=== PATIENT | male | born 1985 | race Caucasian/White ===

== ENCOUNTER 2022-10-27 05:56 | Emergency (ER) | payer MEDICAID ==
[~2022-10-27 05:56] MED LIST: ACET1TAB23 PO; BUTE12CR TP; CEPH500C2 PO; SULF1TAB48 PO
--- NOTE | 2022-10-27 06:49 | NUR ---
PT WAS CALLED 3 TIMES WITH NO RESPONSE.
== END 2022-10-27 06:50 | disposition left against medical advice (07) ==
LOC: ER 05:58
DX: Z53.21 Procedure and treatment not carried out due to patient leaving prior to being seen by health care provider (principal)

== ENCOUNTER 2022-10-27 09:21 | Emergency (ER) | payer MEDICAID ==
[~2022-10-27] VITALS: Ht 167.6 cm; Wt 63.5 kg
[2022-10-27 09:45] VITALS: O2SAT 96
--- NOTE | 2022-10-27 10:22 | NUR ---
Pt seen by MD for bedside eval. Safety measures in place. Will continue to monitor.
[2022-10-27] MEDS ORDERED: ONDANSETRON 4 MG/2 ML VIAL IV ONE (10:30)
[2022-10-27] MEDS ORDERED: VANCOMYCIN IV 1,000 MG in IV DEXTROSE 5% 250 ML IV ONE (10:30)
[2022-10-27] MEDS ORDERED: MORPHINE SULFATE 4 MG/1 ML DISP.SYRIN IV ONE (10:30)
[2022-10-27] MEDS ORDERED: CEFTRIAXONE 1 G in IV DEXTROSE 5% 50 ML IV ONE (10:30)
[2022-10-27] MEDS ORDERED: IV NORMAL SALINE 1000 ML BAG IV ONE (10:30)
--- NOTE | 2022-10-27 10:39 | NUR ---
Pt needed to put money in sidewalk parking so he wouldn't get a ticket. Pt left ER to perform this task. Pt exited safely. Pt currently has no IV site.
[2022-10-27] MEDS ORDERED: VANCOMYCIN IV 0 ML ONE (10:48)
[2022-10-27] MEDS ORDERED: CEFTRIAXONE /D5W 50ML IVPB **ER PYXIS IV ONE (10:48)
[2022-10-27] MEDS ORDERED: ONDANSETRON 4 MG/2 ML VIAL ONE (10:48)
[2022-10-27] MEDS ORDERED: MORPHINE SULFATE 4 MG/1 ML DISP.SYRIN ONE (10:48)
--- NOTE | 2022-10-27 11:22 | NUR ---
As of 1121, Pt has eloped. Pt did not return after moving his vehicle. Pt did not receive an IV, not get any lab work done, not get an X-ray, nor receive any medications. Pt known to the risks of leaving the ER before Pt left, and ultimately, eloped. All pt belongings are with patient.
== END 2022-10-27 11:30 | disposition left against medical advice (07) ==
LOC: ER 09:21
DX: L03.115 Cellulitis of right lower limb (principal); Z79.899 Other long term (current) drug therapy
CPT/HCPCS: 93005; A4663; J0696; J2270; J2405; J3370

== ENCOUNTER 2022-12-10 06:53 | Emergency (ER) | payer MEDICAID ==
[~2022-12-10] VITALS: Ht 165.1 cm; Wt 61.7 kg
[2022-12-10 07:31] VITALS: O2SAT 99
[2022-12-10] MEDS ORDERED: IBUPROFEN 600 MG TABLET PO ONE (08:00)
== END 2022-12-10 08:00 | disposition left against medical advice (07) ==
LOC: ER 06:54
DX: R07.89 Other chest pain (principal); I45.81 Long QT syndrome; Z79.899 Other long term (current) drug therapy
CPT/HCPCS: 71101; A4663

== ENCOUNTER 2023-10-25 07:13 | Emergency (ER) | payer SELFPAY ==
[~2023-10-25] VITALS: Ht 170.2 cm; Wt 61.2 kg
[2023-10-25 07:19] VITALS: O2SAT 97
[2023-10-25] MEDS ORDERED: AMOX-430 PO (07:55)
[2023-10-25] MEDS ORDERED: NEOM10DR11 RIGHT EAR (07:55)
== END 2023-10-25 08:40 | disposition home or self-care (01) ==
LOC: ER 07:13
DX: S52.121A Displaced fracture of head of right radius, initial encounter for closed fracture (principal); H60.91 Unspecified otitis externa, right ear; H66.91 Otitis media, unspecified, right ear; Z79.899 Other long term (current) drug therapy; Z79.1 Long term (current) use of non-steroidal anti-inflammatories (NSAID); Z60.2 Problems related to living alone; V98.8XXA Other specified transport accidents, initial encounter; Y93.89 Activity, other specified; Y92.89 Other specified places as the place of occurrence of the external cause; Y99.8 Other external cause status
CPT/HCPCS: 73080; A4606; A4663

== ENCOUNTER 2024-01-11 04:26 | Emergency (ER) | payer MEDICAID ==
[~2024-01-11] VITALS: Ht 167.6 cm; Wt 61.2 kg
[~2024-01-11 04:26] MED LIST changes: +AMOX-430 PO; +NEOM10DR11 RIGHT EAR
[2024-01-11] MEDS ORDERED: KETOROLAC TROMETHAMINE 15 MG INJ ONE (05:21)
[2024-01-11] MEDS ORDERED: VANCOMYCIN IV 200 ML ONE (05:21)
[2024-01-11 05:24] LABS: BASOPHILS # (AUTO) 0.1 K/UL (0.0-0.2); BASOPHILS % (AUTO) 1.1 % (0.0-2.0); EOSINOPHILS # (AUTO) 0.3 K/uL (0.0-0.7); EOSINOPHILS % (AUTO) 4.9 % (0.0-7.0); HEMATOCRIT 35.8 % (36.7-47.1); HEMOGLOBIN 12.1 g/dL (12.5-16.3); LYMPHOCYTES # (AUTO) 2.7 K/uL (0.8-4.8); LYMPHOCYTES % (AUTO) 38.8 % (20.5-51.5); MEAN CORPUSCULAR HEMOGLOBIN 27.2 uug (23.8-33.4); MEAN CORPUSCULAR HGB CONC 34 g/dL (32.5-36.3); MEAN CORPUSCULAR VOLUME 80.8 fL (73.0-96.2); MONOCYTES # (AUTO) 0.5 K/uL (0.1-1.30); MONOCYTES % (AUTO) 6.8 % (0.0-11.0); NEUTROPHILS # (AUTO) 3.4 K/uL (1.8-8.9); NEUTROPHILS % (AUTO) 48.4 % (38.5-71.5); PLATELET COUNT (AUTO) 374 K/uL (152-348); RED BLOOD CELL COUNT(AUTO) 4.44 MIL/uL (4.06-5.63); RED CELL DISTRIBUTION WIDTH 13.5 % (12.1-16.2)
[2024-01-11] MEDS: VANCOMYCIN IV 1,000 MG in IV DEXTROSE 5% 250 ML IV ONE (05:32)
[2024-01-11] MEDS: KETOROLAC TROMETHAMINE 15 MG INJ IVP ONE (05:34)
[2024-01-11 05:38] LABS: DIFFERENTIAL COMMENT 1
[2024-01-11 05:52] LABS: CALCIUM 8.7 mg/dL (8.5-10.1); CREATININE 0.9 mg/dL (0.6-1.3); POTASSIUM 4.1 mmol/L (3.5-5.1)
[2024-01-11 05:58] LABS: ALBUMIN 2.8 g/dL (3.4-5.0); BILIRUBIN,TOTAL 0.2 mg/dL (0.2-1.0); C-REACTIVE PROTEIN 3.65 mg/dL (0.00-0.30); TOTAL PROTEIN, SERUM 6.7 g/dL (6.4-8.2)
[2024-01-11] MEDS ORDERED: CEPH500C2 PO (06:24)
[2024-01-11] MEDS ORDERED: SULF1TAB48 PO (06:24)
[2024-01-11] MEDS ORDERED: HYDROCODONE/APAP 5-325MG TABLET ONE (06:38)
[2024-01-11] MEDS ORDERED: HYDR-4209 PO (06:40)
[2024-01-11] MEDS: HYDROCODONE/APAP 5-325MG TABLET PO ONE (06:41)
[2024-01-11 07:08] VITALS: BP 155/90; O2SAT 97
== END 2024-01-11 07:08 | disposition home or self-care (01) ==
LOC: ER 04:38
DX: L02.415 Cutaneous abscess of right lower limb (principal); L03.115 Cellulitis of right lower limb; R03.0 Elevated blood-pressure reading, without diagnosis of hypertension; Z79.891 Long term (current) use of opiate analgesic; Z79.1 Long term (current) use of non-steroidal anti-inflammatories (NSAID); Z79.899 Other long term (current) drug therapy; Z60.2 Problems related to living alone
CPT/HCPCS: 99284; 96365; 96366; 96375; 80053; 85025; 86140; 36415; J1885; J3370; A4606; A4663

== ENCOUNTER 2024-03-07 06:05 | Emergency (ER) | payer MEDICAID, OTHER ==
[~2024-03-07] VITALS: Ht 167.6 cm; Wt 63.5 kg
[~2024-03-07 06:05] MED LIST changes: -ACET1TAB23 PO; -AMOX-430 PO; -BUTE12CR TP; +HYDR-4209 PO; -NEOM10DR11 RIGHT EAR
[2024-03-07] MEDS ORDERED: LIDOCAINE 5% PATCH TD ONE (07:53)
[2024-03-07] MEDS ORDERED: KETOROLAC TROMETHAMINE 15 MG INJ ONE (07:53)
[2024-03-07] MEDS ORDERED: CYCLOBENZAPRINE HCL 10 MG TABLET ONE (07:53)
[2024-03-07] MEDS ORDERED: HYDROCODONE/APAP 5-325MG TABLET ONE (07:54)
[2024-03-07] MEDS: CYCLOBENZAPRINE HCL 10 MG TABLET PO ONE (08:06)
[2024-03-07] MEDS: KETOROLAC TROMETHAMINE 15 MG INJ IM ONE (08:06)
[2024-03-07] MEDS: HYDROCODONE/APAP 5-325MG TABLET PO ONE (08:07)
[2024-03-07] MEDS: LIDOCAINE 5% PATCH TD ONE (08:07)
[2024-03-07] MEDS ORDERED: LIDO30AD10 TP (08:38)
[2024-03-07] MEDS ORDERED: IBUP-1955 PO (08:38)
[2024-03-07] MEDS ORDERED: CYCL5TAB PO (08:38)
[2024-03-07 09:37] VITALS: BP 129/90; TEMP 98.8; O2SAT 98
== END 2024-03-07 09:38 | disposition home or self-care (01) ==
LOC: ER 06:31
DX: S53.401A Unspecified sprain of right elbow, initial encounter (principal); S83.92XA Sprain of unspecified site of left knee, initial encounter; R07.89 Other chest pain; R07.81 Pleurodynia; Z60.2 Problems related to living alone; V23.49XA Other motorcycle driver injured in collision with car, pick-up truck or van in traffic accident, initial encounter; Y93.89 Activity, other specified; Y92.488 Other paved roadways as the place of occurrence of the external cause; Y99.8 Other external cause status
CPT/HCPCS: 71101; 73080; A4606; A4663; J1885

== ENCOUNTER 2024-08-18 06:05 | Emergency (ER) | payer OTHER ==
[~2024-08-18] VITALS: Ht 167.6 cm; Wt 61.2 kg
[~2024-08-18 06:05] MED LIST changes: +CYCL5TAB PO; +IBUP-1955 PO; +LIDO30AD10 TP
[2024-08-18] MEDS ORDERED: SULF1TAB48 PO (07:12)
[2024-08-18] MEDS ORDERED: CEPH500T PO (07:12)
[2024-08-18] MEDS ORDERED: ACETAMINOPHEN 500 MG TABLET ONE (07:25)
[2024-08-18] MEDS ORDERED: SULFAMETH/TRIMETH 800/160 MG TABLET ONE (07:26)
[2024-08-18] MEDS ORDERED: CEphaleXIN 500 MG CAPSULE ONE (07:26)
[2024-08-18] MEDS: SULFAMETH/TRIMETH 800/160 MG TABLET PO ONE (07:29)
[2024-08-18] MEDS: CEphaleXIN 500 MG CAPSULE PO ONE (07:29)
[2024-08-18] MEDS: ACETAMINOPHEN 500 MG TABLET PO ONE (07:30)
[2024-08-18 07:41] VITALS: BP 112/74; TEMP 98.5; O2SAT 98
== END 2024-08-18 07:42 | disposition home or self-care (01) ==
LOC: ER 06:05
DX: L02.31 Cutaneous abscess of buttock (principal); Z60.2 Problems related to living alone
CPT/HCPCS: A4606; A4663; A9150

== ENCOUNTER 2024-08-25 10:31 | Emergency (ER) | payer OTHER ==
[~2024-08-25] VITALS: Ht 167.6 cm; Wt 61.2 kg
[~2024-08-25 10:31] MED LIST changes: -CEPH500C2 PO; +CEPH500T PO; -CYCL5TAB PO; -HYDR-4209 PO; -IBUP-1955 PO; -LIDO30AD10 TP
[2024-08-25] MEDS ORDERED: SULF1TAB48 PO (12:03)
[2024-08-25] MEDS ORDERED: IBUP-1957 PO (12:03)
[2024-08-25] MEDS: SULFAMETH/TRIMETH 800/160 MG TABLET PO ONE (12:09)
[2024-08-25 12:17] VITALS: BP 109/81; TEMP 98.8; O2SAT 99
== END 2024-08-25 12:18 | disposition home or self-care (01) ==
LOC: ER 10:31
DX: S66.811A Strain of other specified muscles, fascia and tendons at wrist and hand level, right hand, initial encounter (principal); L02.31 Cutaneous abscess of buttock; Z60.2 Problems related to living alone; V00.141A Fall from scooter (nonmotorized), initial encounter; Y93.I9 Activity, other involving external motion; Y92.488 Other paved roadways as the place of occurrence of the external cause; Y99.8 Other external cause status
CPT/HCPCS: 73070; 73100; A4606; A4663

== ENCOUNTER 2025-02-07 21:58 | Emergency (ER) | payer OTHER ==
[~2025-02-07] VITALS: Ht 167.6 cm; Wt 59.0 kg
[~2025-02-07 21:58] MED LIST changes: +IBUP-1957 PO
[2025-02-07 23:15] VITALS: BP 120/78
[2025-02-08] MEDS ORDERED: IBUPROFEN 200 MG TABLET ONE (00:33)
[2025-02-08] MEDS ORDERED: ACETAMINOPHEN 500 MG TABLET ONE (00:33)
[2025-02-08] MEDS: ACETAMINOPHEN 500 MG TABLET PO ONE (00:35)
[2025-02-08 00:36] VITALS: TEMP 97.3
[2025-02-08] MEDS: IBUPROFEN 200 MG TABLET PO ONE (00:36)
[2025-02-08] MEDS ORDERED: HYDR-3980 PO (01:51)
[2025-02-08] MEDS ORDERED: IBUP-1953 PO (01:51)
[2025-02-08 02:08] VITALS: BP 120/78; O2SAT 94
== END 2025-02-08 02:08 | disposition home or self-care (01) ==
LOC: ER 21:58
DX: S52.572A Other intraarticular fracture of lower end of left radius, initial encounter for closed fracture (principal); Z88.7 Allergy status to serum and vaccine; Z60.2 Problems related to living alone; Z79.899 Other long term (current) drug therapy; V89.9XXA Person injured in unspecified vehicle accident, initial encounter; Y93.89 Activity, other specified; Y92.89 Other specified places as the place of occurrence of the external cause; Y99.9 Unspecified external cause status
CPT/HCPCS: 73090; 73120; A4606; A4663; A9150